=== PATIENT | female | born 1990 | race Caucasian/White ===

== ENCOUNTER → 2021-10-29 | Outpatient (CLI) | payer OTHER | LOC: EXRD 10:13 | DX: M25.561 Pain in right knee (principal) | CPT/HCPCS: 73562 ==

== ENCOUNTER → 2021-11-13 | Outpatient (CLI) | payer OTHER | LOC: HEART 5 13:08 | DX: R55 Syncope and collapse (principal); I08.3 Combined rheumatic disorders of mitral, aortic and tricuspid valves | CPT/HCPCS: 93306 ==